=== PATIENT | male | born 1970 | race Caucasian/White ===

== ENCOUNTER → 2016-11-28 | Outpatient (CLI) | payer BC ==
[~2016-11-28] MED LIST: AMLO5TAB2 PO; ESCI10TA17 PO; LEVO200T PO; LEVO50TA PO; LOSA100T2 PO; LOSA100T33 PO; MELO7.5T5 PO; PANT40TA PO
[2016-11-28 18:01] LABS: AST/SGOT 27 U/L (15-37); BLOOD UREA NITROGEN 17 mg/dl (7-18); BUN/CREATININE RATIO 16.9 (10-20); CALCIUM 9.5 mg/dl (8.5-10.1); CARBON DIOXIDE 25 mmol/L (21-32); CHLORIDE 107 mmol/L (98-107); CHOLESTEROL 210 mg/dl (0-200); GLUCOSE 78 mg/dl (70-99); POTASSIUM 3.9 mmol/L (3.5-5.1); SODIUM 142 mmol/L (136-145)
[2016-11-28 18:12] LABS: ALB/GLOB RATIO 1.1 (0.9-2); ALKALINE PHOSPHATASE 115 U/L (45-117); ALT/SGPT 104 U/L (12-78); CHOLESTEROL/HDL RATIO 4.3; HDL CHOLESTEROL 49 mg/dl; LDL CHOLESTEROL CALCULATED 140 mg/dl; PROSTATE SPECIFIC ANTIGEN 0.581 ng/ml (0.000-4.000); THYROID STIMULATING HORMONE 0.585 uIu/ml (0.300-4.500); TRIGLYCERIDES 104 mg/dl (0-150); VERY LOW DENSITY LIPOPROT CALC 21 mg/dl
== END | disposition home or self-care (01) ==
LOC: C.LAB 15:15
PROVIDERS: ATTEND Internal Medicine Geriatric Medicine
DX: E78.5 Hyperlipidemia, unspecified (principal); E03.9 Hypothyroidism, unspecified; Z80.42 Family history of malignant neoplasm of prostate

== ENCOUNTER 2017-10-21 14:11 | Emergency (ER) | payer OTHER, BC ==
[~2017-10-21] VITALS: Ht 182.9 cm; Wt 113.0 kg
[~2017-10-21 14:11] MED LIST changes: -ESCI10TA17 PO; -LOSA100T33 PO; -PANT40TA PO
[2017-10-21 14:12] VITALS: TEMP 37; Ht 182.9 cm; Wt 113.0 kg
[2017-10-21] MEDS ORDERED: ESCI10TA17 PO (14:40)
[2017-10-21] MEDS ORDERED: LOSA100T33 PO (14:41)
[2017-10-21] MEDS ORDERED: PANT40TA PO (14:41)
--- NOTE | 2017-10-21 15:26 | DIAGNOSTIC IMAGING REPORT ---
L ANKLE MIN 3 VIEWS ROUTINE HISTORY: 46 years-old Male L ankle injury acute left ankle pain status post injury COMPARISON: Left ankle radiographs 10/01/2013 TECHNIQUE: 3 views of the left ankle FINDINGS: Moderate plantar and Achilles enthesophyte about the calcaneus. There is mild marginal spurring of the medial and lateral malleoli. No acute fracture, dislocation or osteochondral defect. There is mild to moderate soft tissue swelling about the ankle, greatest laterally. No opaque foreign body. Small joint effusion. IMPRESSION: 1. Mild to moderate soft tissue swelling and small joint effusion without acute fracture or dislocation. 2. Degenerative changes of the hindfoot as above. The above report was generated using voice recognition software. It may contain grammatical, syntax or spelling errors. Electronically signed by: Surinder Tompkins M.D. 10/21/2017 3:24 PM Dictated Date/Time: 10/21/2017 3:23 PM
[2017-10-21 15:35] VITALS: BP 141/97; PULSE 69; O2SAT 94
--- NOTE | 2017-10-21 18:09 | EMERGENCY ROOM VISIT NOTE ---
ED Visit Note First contact with patient: 14:14 Chief Complaint: Left ankle pain. History of Present Illness: Mr. Almaguer is a 46-year-old white male who ambulates into the ED complaining of left lateral ankle pain Patient reports she was at work today approximately 3 hours before he arrived in the emergency department at a client's home when he was stepping down off a curb and injured his left ankle. He reports he rolled the injury and indicated that this was an inversion injury. Since that time he has been having pain and swelling over the lateral aspect of the ankle. Currently he places his discomfort over the distal fibula and the surrounding ligamentous structures of the left ankle. He describes his pain as a combination of throbbing and sharp. He rates his discomfort 5/10. His pain is nonradiating. His pain worsens with ambulation, palpation, inversion and eversion. He has not identified any alleviating factors related to the pain. He has not taken any medications for pain prior to arrival at the hospital. Associated with his pain he reports he has a tingling sensation in his toes. He does report a previous fracture to the ankle but does not remember specifically what bone was broken. He reports he was immobilized and placed on crutches and had resolution of the symptoms Review of Systems: As noted above in history of present illness. Past Medical History: Hypertension, heart murmur, status post thyroidectomy. Current Medications: Synthroid, Norvasc, Lexapro, Hyzaar and Protonix. Allergies to Medications: Dexamethasone, neomycin, latex. Social History: Patient is currently employed; he feels safe in his home environment; he denies tobacco and alcohol use. Physical Examination: Vital Signs: Date Time Temp Pulse Resp B/P (MAP) Pulse Ox O2 Delivery O2 Flow Rate FiO2 10/21/17 15:35 69 18 141/97 94 Room Air 10/21/17 14:12 37.0 75 18 151/82 97 Room Air GENERAL: 46-year-old male in mild distress due to pain, nontoxic-appearing, afebrile and hemodynamically stable. NEUROLOGICAL: Awake, alert and oriented to person, place and time. Answering questions appropriately and following commands. SKIN: Warm, dry and pink. No open soft tissue trauma noted. LEFT LOWER EXTREMITY: No gross bony deformity. No shortening or malrotation. No tenderness in the hip, thigh, knee or proximal lower leg. Moderate tenderness over the distal fibula and the surrounding ligamentous structures over the lateral surface. There is moderate swelling. I do not appreciate any bony deformity or crepitus. I did not appreciate any laxity of the ligamentous structure with testing. No tenderness over the heel, Achilles tendon or throughout the foot. Minimal decreased range of motion due to pain. 4/5 muscle strength and plantar flexion and dorsiflexion of the ankle and flexion and extension of all toes. Throughout the foot the skin was warm and pink and capillary refill is brisk. He is able to distinguish light sensations through all dermatomes.. ED Course: Patient is assessed as noted above. Patient's medication list was reviewed. Patient was given ice for pain and swelling; he was offered pain medication and refused. Left Ankle X-Rays: Were read by myself and the radiologist showing no acute fractures or dislocations. Mild to moderate soft tissue swelling and a small joint effusion was noted. Also degenerative changes of the hindfoot were also noted. Patient was placed in a gel splint and nonweightbearing crutches. Patient was educated about today's findings and instructed on his treatment plan ; he verbalized understanding and agreement with this plan. Clinical Impression: Left ankle sprain. Work related injury. Disposition: Patient discharged home in stable condition; prior to departure he was reassessed and subjectively reported he was feeling better and rated his discomfort 4/10. Plan: Comfort measures including rest, ice, ibuprofen and acetaminophen, elevation, gel splint and nonweightbearing crutches were discussed with the patient. Patient is encouraged to follow-up with Work[employer] Compensation for recheck and possible referral to orthopedics. Patient was encouraged return ED for worsening/uncontrolled pain, uncontrolled swelling, foot weakness/numbness/tingling or any new/concerning symptoms.
== END 2017-10-21 15:37 | disposition home or self-care (01) ==
LOC: C.EDB 14:12 → C.EDD 15:37
DX: S93.402A Sprain of unspecified ligament of left ankle, initial encounter (principal); X58.XXXA Exposure to other specified factors, initial encounter; Y92.89 Other specified places as the place of occurrence of the external cause; Y99.0 Civilian activity done for income or pay; M25.472 Effusion, left ankle; I10 Essential (primary) hypertension; Z98.890 Other specified postprocedural states; Z79.899 Other long term (current) drug therapy; Z88.8 Allergy status to other drugs, medicaments and biological substances; Z91.040 Latex allergy status